=== PATIENT | female | born 1960 | race Caucasian/White ===

== ENCOUNTER → 2017-02-15 08:15 | Outpatient (CLI) | payer OTHER ==
[2013-01-01 11:13] VITALS: BMI 42.4
[2017-02-15 08:30] LABS: BASOPHILS 0.3 % (0-2); EOSINOPHILS 2.2 % (0-7); HEMATOCRIT 43.1 % (36.0-48.0); HEMOGLOBIN 14.7 g/dL (12-16); IMMATURE GRANULOCYTES 0.2 % (0-5); LYMPHOCYTES 30.1 % (15-50); MCH 30.9 pg (26.0-34.0); MCHC 34.1 g/dL (31.0-37.0); MCV 90.5 fL (80.0-100.0); MEAN PLATELET VOLUME 10.8 fL (7.4-10.4); MONOCYTES 8.2 % (2-11); PLATELET COUNT 192 10x3/uL (130-400); RBC 4.76 10x6/uL (4.00-5.40); RDW 12.4 % (11.5-14.5); WBC 5.9 10x3/uL (4.8-10.8)
[2017-02-15 09:09] LABS: ALBUMIN 3.6 g/dL (3.4-5.0); ALKALINE PHOSPHATASE 44 U/L (46-116); ALT (SGPT) 20 U/L (10-68); BILIRUBIN - TOTAL 0.76 mg/dL (0.2-1.3); CALC OSMOLALITY 280 mosm/kg (275-300); CALCIUM 9.2 mg/dL (8.5-10.1); CARBON DIOXIDE 29.2 mmol/L (21.0-32.0); CHLORIDE - SERUM 106 mmol/L (98-107); CHOL - HDL RATIO 5.8 ratio (2.3-4.1); CHOLESTEROL, TOTAL 213 mg/dL (0-200); GLUCOSE 104 mg/dL (74-106); HDL CHOLESTEROL 37 mg/dL (32-96); LDL CHOLESTEROL 133 mg/dL (0-100); LDL-HDL RATIO 3.6 ratio (1.5-3.5); PROTEIN - SERUM 6.9 g/dL (6.4-8.2); SODIUM 141 mmol/L (136-145); TRIGLYCERIDE 216 mg/dL (30-200); TROPONIN-I < 0.017 ng/mL (0.000-0.060); UREA NITROGEN 13 mg/dL (7-18); eGFR NON AFRICAN AMERICAN 61 mL/min (90-120)
== END | disposition home or self-care (01) ==
LOC: D.LAB 08:15
PROVIDERS: Family Medicine
DX: Z00.00 Encounter for general adult medical examination without abnormal findings (principal); R07.9 Chest pain, unspecified; I10 Essential (primary) hypertension; E55.9 Vitamin D deficiency, unspecified; E78.4 Other hyperlipidemia

== ENCOUNTER → 2017-07-05 08:57 | Outpatient (CLI) | payer OTHER ==
[2013-01-01 11:13] VITALS: BMI 42.4
[2017-07-05 09:46] LABS: CHOL - HDL RATIO 6.5 ratio (2.3-4.1); LDL-HDL RATIO 4.3 ratio (1.5-3.5)
== END | disposition home or self-care (01) ==
LOC: D.LAB 08:15
PROVIDERS: Family Medicine
DX: E78.4 Other hyperlipidemia (principal)

== ENCOUNTER → 2018-06-06 12:25 | Outpatient (CLI) | payer OTHER ==
[2013-01-01 11:13] VITALS: BMI 42.4
== END | disposition home or self-care (01) ==
LOC: D.RAD 12:25
DX: M54.5 Low back pain (principal)

== ENCOUNTER → 2019-08-29 11:58 | Outpatient (CLI) | payer OTHER ==
[2013-01-01 11:13] VITALS: BMI 42.4
[~2019-08-29 11:58] MED LIST: BREO ELLIPTA 11 EACH INH; CYCLOBENZAPRINE10 MG PO; CYMBALTA60 MG PO; HYDROCHLOROTHIA25 MG PO; HYDROCODON-ACE1 EA10 PO; INDERAL 40 MG T40 MG PO; OMEPRAZOLE20 M1 PO; VOLTAREN75 MG PO
== END | disposition home or self-care (01) ==
LOC: D.LABREF 11:58
PROVIDERS: ATTEND Orthopaedic Surgery
DX: M16.12 Unilateral primary osteoarthritis, left hip (principal)

== ENCOUNTER 2019-09-06 16:15 | Inpatient (IN) | payer OTHER ==
[~2019-09-06] VITALS: Ht 170.2 cm; Wt 122.7 kg
[2019-09-25 12:05] LABS: HEMATOCRIT 41.7 % (36.0-48.0); HEMOGLOBIN 14.6 g/dL (12-16); LYMPHOCYTES 31.6 % (15-50); MCH 30.9 pg (26.0-34.0); MCV 88.2 fL (80.0-100.0); MEAN PLATELET VOLUME 9.8 fL (7.4-10.4); NEUTROPHILS 61.7 % (40-80); PLATELET COUNT 219 10x3/uL (130-400); RBC 4.73 10x6/uL (4.00-5.40); RDW 11.9 % (11.5-14.5); WBC 5.7 10x3/uL (4.8-10.8)
[2019-09-25 12:17] LABS: ANION GAP 12.2 mmol/L (8-16); APTT 27.8 SECONDS (22.8-39.4); CALCIUM 8.9 mg/dL (8.5-10.1); CREATININE - SERUM 0.9 mg/dL (0.6-1.3); INR 1.07 (0.85-1.17); POTASSIUM - SERUM 3.2 mmol/L (3.5-5.1); PROTIME 13.4 SECONDS (11.6-15.0)
[2019-09-25 12:46] LABS: APPEARANCE CLEAR (CLEAR); BILIRUBIN NEGATIVE (NEGATIVE); COLOR YELLOW (YELLOW); GLUCOSE NEGATIVE (NEGATIVE); KETONE NEGATIVE (NEGATIVE); NITRITE NEGATIVE (NEGATIVE); PROTEIN NEGATIVE (NEGATIVE); SPECIFIC GRAVITY 1.025 (1.005-1.020); UROBILINOGEN NORMAL (NORMAL)
[2019-10-01 06:34] VITALS: BP 157/98; BMI 43.8
--- NOTE | 2019-10-01 07:20 | NUR ---
DR BIRMINGHAM NOTIFIED AND REVIEWED PATIENT'S BEHAVIOR AND ASSESSMENT RESULTS. PATIENT IS A LOW RISK. DR BIRMINGHAM STATED TO GIVE RESOURCES TO PATIENT. RESOURCES REVIEWED WITH PATIENT AND SHE VERBALIZES UNDERSTANDING.
[2019-10-01] MEDS ORDERED: CYMBALTA60 MG PO (07:24)
[2019-10-01] MEDS ORDERED: INDERAL 40 MG T40 MG PO (07:24)
[2019-10-01] MEDS ORDERED: VOLTAREN75 MG PO (07:25)
[2019-10-01] MEDS ORDERED: HYDROCHLOROTHIA25 MG PO (07:25)
[2019-10-01] MEDS ORDERED: CYCLOBENZAPRINE10 MG PO (07:26)
[2019-10-01] MEDS ORDERED: HYDROCODON-ACE1 EA10 PO (07:26)
[2019-10-01] MEDS ORDERED: OMEPRAZOLE20 M1 PO (07:27)
[2019-10-01] MEDS ORDERED: BREO ELLIPTA 11 EACH INH (07:28)
--- NOTE | 2019-10-01 11:28 | NUR ---
HIBICLENS/ALCOHOL PREP WAS DONE FIRST FROM MED ABDOMEN TO CALF CIRCUMFRENCIALLY. RN IN [place]ER[place] GOWN AND GLOVES TO PREP WITH HIBICLENS CIRCUMFRENCIALLY. [facility] SETTING IS 03/30 AND 170.
--- NOTE | 2019-10-01 11:53 | NUR ---
TOBRAMYCIN AND VANCOMYCIN ON FIELD AND PACKED INTO WOUND.
--- NOTE | 2019-10-01 13:12 | NUR ---
PT HAS CYANOTIC TOES BILATERALLY AT TIME OF ASSESSMENT. RT FOOT RESOLVED AFTER WRAPPING IN WARM BLANKET. LEFT FOOT PEDAL PULSES IDENTIFIED AND MARKED AT BOTH DORSALIS PEDIS AND POSTERIAL TIBIAL SITES. PULSES WEAK AND REGULAR. LEFT FOOT ALSO WRAPPED IN WARM BLANKET. WILL CTM.
--- NOTE | 2019-10-01 13:30 | NUR ---
BILATERAL FEET REASSESSED. CYANOSIS OF TOES IS RESOLVED. REWRAPPED LEFT FOOT IN WARM BLANKET.
--- NOTE | 2019-10-01 14:00 | NUR ---
PATIENT TO ROOM AT THIS TIME WITH IV INTACT. NO COMPLAINTS EYES CLOSED RESTING QUIETLY. FAMILY IN ROOM. VS STABLE. CALL LIGHT WITHIN REACH.
[2019-10-01 14:01] VITALS: BP 131/82
--- NOTE | 2019-10-01 15:42 | OP ---
PATIENT NAME: YESI ANGULO MEDICAL RECORD: [id number] :64 LOCATION:D.MS [id number] ADMISSION DATE:10/01/19 SURGEON: RICHARD PERRY DO DATE OF OPERATION: 10/01/2019 PROCEDURE PERFORMED: Left total hip arthroplasty. 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 INDICATIONS: Ms. Angulo is a 58-year-old female who has had left hip AVN for some time. She got an MRI showing very severe. She did not want to undergo a core decompression. She wanted hip replaced as she is tired dealing with the pain, wanted to go away. I informed her of the risks including infection, fracture, bleeding, damage to nerves and vessels anterolateral thigh numbness, blood clots and even . She was aware of that and continued pain and she signed a consent. SURGEON: Richard Perry DO DESCRIPTION OF PROCEDURE: The patient was taken to the operative suite, laid in supine position and given general anesthetic and intubated. The patient was then moved to the [place] table. The left hip was prepped and draped in sterile fashion. I then did another prep stick prior to putting a final drape on. Once the final drape was put over the site, timeout had been performed, everyone was in agreeance with the correct side, site, patient and procedure. The incision began over tensor fasciae jeremy muscle. Careful dissection was made down to the muscle. The fascia was taken anteriorly and the muscle belly posteriorly. I opened up the interval between the rectus. This fascia was then opened in the rectus was rectus was taken medially, the tensor fascia jeremy laterally and the ascending branch of lateral femoral circumflex artery and the accompanying veins were exposed, tied off and then coagulated with the Aquamantys. The capsule was then exposed and Hohmanns were placed around the neck of the femur. The capsule was then opened up and tagged. The Hohmanns were then placed inside around the neck. Femoral neck was then cut and head was removed. The acetabulum was then exposed. The labrum was removed and the foam around it was removed. Bleeding was coagulated with the Aquamantys. The reaming then began in the acetabulum and then up to a 52 cup. A 52 cup was impacted into place and sat very nicely and was probed and it was very well seated. The liner was then placed. The femur was then exposed and the canal finder and cookie cutter was used and then the broach from a 4 to a 11 was used. The 11 was then used as a trial with a -3 neck. X-rays were taken, it fit very well and had good length compared to the right side on AP pelvis. This was then removed and the actual implant was placed, and the hip was reduced and fit very well, had good motion, very good stability. The site was then irrigated with 10% povidone iodine solutions with 500 mL of normal saline and set for 3 minutes. This was then irrigated out with a liter of normal saline and then the capsule was closed with #2 Ethibond in a lxstis-va-swsvb fashion. Manisha was then put in as well as a tobramycin and vancomycin powder. The tensor fascia jeremy fascia was then closed with #1 Vicryl, first in a vcpgdt-lw-sfycw and then a running locking stitch. Skin was then closed with 2-0 Vicryl in an inverted interrupted fashion, 4-0 Monocryl ran on the skin and a Prevena Plus placed on the skin. She was then awakened and taken to recovery in stable condition. Blood loss was approximately 250 mL. OPERATIVE REPORT [id number] YESI ANGULO COMPLICATIONS: None. I was assisted by Yg العراقي, advanced nurse practitioner and Jose Garce, certified surgical first aid officer. They both assisted with retraction as well as closing. The procedure could not have been performed without them. TRANSINT:[id number] Voice Confirmation ID: [id number] DOCUMENT ID: [id number] RICHARD PERRY DO at 1542 CC: [id number] DICTATION DATE: 10/01/19 1222 WHIPPER BEATER: 10/01/19 1336 ADM IN [place] [id number] [place] [address]
--- NOTE | 2019-10-01 15:45 | NUR ---
PATIENT IN BED WITH IV INTACT. NO COMPLAINTS, VS STABLE. DRESSING CDI TO HIP. EYES CLOSED RESTING QUIETLY AT THIS TIME. CALL LIGHT WITHIN REACH.
[2019-10-01 15:56] LABS: BASOPHILS 0 % (0-2); EOSINOPHILS 0.1 % (0-7); HEMATOCRIT 36.9 % (36.0-48.0); HEMOGLOBIN 12.2 g/dL (12-16); IMMATURE GRANULOCYTES 0.2 % (0-5); LYMPHOCYTES 4.9 % (15-50); MCH 30.5 pg (26.0-34.0); MCHC 33.1 g/dL (31.0-37.0); MCV 92.3 fL (80.0-100.0); MEAN PLATELET VOLUME 9.9 fL (7.4-10.4); MONOCYTES 3.9 % (2-11); NEUTROPHILS 90.9 % (40-80); PLATELET COUNT 213 10x3/uL (130-400); RDW 12.5 % (11.5-14.5); WBC 8.3 10x3/uL (4.8-10.8)
[2019-10-01 16:19] LABS: ALBUMIN 2.6 g/dL (3.4-5.0); ANION GAP 12.6 mmol/L (8-16); BILIRUBIN - TOTAL 1.26 mg/dL (0.2-1.3); CALCIUM 8.2 mg/dL (8.5-10.1); CARBON DIOXIDE 26.8 mmol/L (21.0-32.0); CREATININE - SERUM 0.9 mg/dL (0.6-1.3); POTASSIUM - SERUM 4.4 mmol/L (3.5-5.1); PROTEIN - SERUM 5.4 g/dL (6.4-8.2)
--- NOTE | 2019-10-01 18:45 | NUR ---
PATIENT IN BED WITH IV INTACT. TOLERATED REGULAR DIET EARLIER WITH NO N/V. VS STABLE. NO COMPLAINTS OR SIGNS OF DISTRESS. EYES CLOSED RESTING QUIETLY. CALL LIGHT WITHIN REACH.
[2019-10-01 19:57] VITALS: BP 131/82; Ht 170.2 cm; Wt 122.7 kg
[2019-10-01 21:45] VITALS: BP 123/77
[2019-10-02] VITALS (9 sets, daily range): BP systolic 97–136; BP diastolic 57–82
[2019-10-02 04:43] LABS: BASOPHILS 0 % (0-2); EOSINOPHILS 0 % (0-7); HEMATOCRIT 35.3 % (36.0-48.0); HEMOGLOBIN 11.8 g/dL (12-16); IMMATURE GRANULOCYTES 0.3 % (0-5); LYMPHOCYTES 7.8 % (15-50); MCH 30.4 pg (26.0-34.0); MCHC 33.4 g/dL (31.0-37.0); MEAN PLATELET VOLUME 10.3 fL (7.4-10.4); NEUTROPHILS 82.9 % (40-80); RBC 3.88 10x6/uL (4.00-5.40); RDW 12.4 % (11.5-14.5); WBC 10.3 10x3/uL (4.8-10.8)
[2019-10-02 04:53] LABS: PLATELET COUNT 264 10x3/uL (130-400)
[2019-10-02 05:05] LABS: BILIRUBIN - TOTAL 0.73 mg/dL (0.2-1.3); CALCIUM 8.2 mg/dL (8.5-10.1); CARBON DIOXIDE 30.3 mmol/L (21.0-32.0); CREATININE - SERUM 1.1 mg/dL (0.6-1.3); PROTEIN - SERUM 6.1 g/dL (6.4-8.2)
[2019-10-02 05:10] LABS: ANION GAP 10.2 mmol/L (8-16); POTASSIUM - SERUM 3.5 mmol/L (3.5-5.1)
--- NOTE | 2019-10-02 08:45 | NUR ---
PATIENT IN BED WITH IV INTACT. NO COMPLAINTS OR SIGNS OF DISTRESS. CALL LIGHT WITHIN REACH.
--- NOTE | 2019-10-02 18:45 | NUR ---
PATIENT IN BED WITH IV INTACT. BSCDS ON AND WORKING. NO COMPLAINTS. CALL LIGHT WITHIN REACH.
--- NOTE | 2019-10-02 19:25 | NUR ---
UP IN BED WITH TV ON, ABLE TO VOICE ALL NEEDS. ALERT AND ORIENTED. DENIES PAIN AT THIS TIME. PROVENA VAC TO LEFT HIP ORDERED. NO S/S OF ANY DISTRESS. WILL NOTE ANY CHANGE.
[2019-10-03 01:43] VITALS: BP 120/60
[2019-10-03 04:03] VITALS: BP 135/80
--- NOTE | 2019-10-03 05:04 | NUR ---
I have reviewed this patient and I concur with the Shift Assessment completed by the Licensed Practical Nurse today this shift.
--- NOTE | 2019-10-03 05:04 | NUR ---
I have reviewed this patient and I concur with the Shift Assessment completed by the Licensed Practical Nurse today this shift.
[2019-10-03 06:35] VITALS: BP 128/60
[2019-10-03 06:41] LABS: BASOPHILS 0.1 % (0-2); EOSINOPHILS 0.4 % (0-7); HEMATOCRIT 32.8 % (36.0-48.0); IMMATURE GRANULOCYTES 0.3 % (0-5); LYMPHOCYTES 23.4 % (15-50); MCH 30.1 pg (26.0-34.0); MCHC 33.5 g/dL (31.0-37.0); MCV 89.6 fL (80.0-100.0); MEAN PLATELET VOLUME 10.6 fL (7.4-10.4); MONOCYTES 12.8 % (2-11); RBC 3.66 10x6/uL (4.00-5.40); RDW 12.3 % (11.5-14.5); WBC 7.9 10x3/uL (4.8-10.8)
--- NOTE | 2019-10-03 07:10 | NUR ---
ALERT AND ORIENTED, RESTING IN BED EYES OPEN. NO C/O PAIN. NO S/S OF ACUTE DISTRESS NOTED. POD#2 LEFT HIP, PROVENA WOUND VAC IN PLACE AND DRESSING C/D/I. SCDS PRESENT. UP WITH WALKER. USES BEDSIDE COMMODE. IV TO RIGHT HAND, SL. SITE PATENT WITHOUT REDNESS OR SWELLING. DENIES ANY NEEDS AT THIS TIME. CALL LIGHT IN REACH. WILL CONTINUE TO MONITOR.
[2019-10-03 07:22] LABS: PLATELET COUNT 206 10x3/uL (130-400)
[2019-10-03 07:25] LABS: ALBUMIN 2.8 g/dL (3.4-5.0); BILIRUBIN - TOTAL 0.86 mg/dL (0.2-1.3); CALCIUM 8.3 mg/dL (8.5-10.1); CARBON DIOXIDE 29.8 mmol/L (21.0-32.0)
[2019-10-03 07:54] LABS: ANION GAP 9.9 mmol/L (8-16)
[2019-10-03 07:56] LABS: POTASSIUM - SERUM 2.7 mmol/L (3.5-5.1)
--- NOTE | 2019-10-03 08:06 | NUR ---
RECEIVED CALL FROM LAB, CRITICAL POTASSIUM OF 2.[address] PERRY. PATIENT ON ELECTROLYTE PROTOCOL. WILL FOLLOW PROTOCOL.
[2019-10-03] MEDS ORDERED: ELIQUIS2.5 MG PO (08:08)
[2019-10-03] MEDS ORDERED: KEFLEX500 MG PO (08:09)
[2019-10-03] MEDS ORDERED: OXYCODONE HCL5 M1 PO (08:09)
[2019-10-03] MEDS ORDERED: VISTARIL50 MG PO (08:09)
[2019-10-03 08:40] VITALS: BP 115/61
--- NOTE | 2019-10-03 11:19 | NUR ---
I have reviewed this patient and I concur with the Shift Assessment completed by the Licensed Practical Nurse today this shift.
[2019-10-03 13:00] VITALS: BP 118/64
--- NOTE | 2019-10-03 16:49 | MORECARE ---
CASE MANAGEMENT DISCHARGE SUMMARY PATIENT: YESI ANGULO UNIT: [id number] ADM DATE: 10/01/19 AGE: 58 : 64 SEX: F ROOM/BED: D.2211 AUTHOR: SHERYL CONTRERAS PHYSICIAN: REFERRING PHYSICIAN: XANDER PERRY DO DATE OF SERVICE: 10/03/19 Discharge Plan Patient Name: YESI ANGULO Facility: [facility]:[place] : 1960 Planned Disposition: Home or Self Care Anticipated Discharge Date: Discharge Date: Expected LOS: Initial Reviewer: [email or web address] Initial Review Date: 10/01/2019 Generated: 10/03/19 5:49 pm DCPIA - Discharge Planning Initial Assessment Updated by [email or web address]: Tashia Cedeno on 10/03/19 4:47 pm * Is the patient Alert and Oriented? Yes * How many steps to enter\exit or inside your home? 15 * PCP RYAN * Pharmacy [facility] [address] * Preadmission Environment Home with Family * ADLs Independent * Equipment Bedside Commode Rolling Walker * List name and contact numbers for known caregivers / representatives who currently or will assist patient after discharge: MITCHELL ( MOTHER) [phone] * Verbal permission to speak to the caregivers and representatives has been obtained from the patient. N/A * Community resources currently utilized None * Additional services required to return to the preadmission environment? Yes * Can the patient safely return to the preadmission environment? Yes * Has this patient been hospitalized within the prior 30 days at any hospital? No External Providers External Provider: Issac PT Next Contact Date: Service Request Date: Service Type: Resolution: Reviewer: Comments: Patient Name: YESI ANGULO Page 49582 at 1649 All edits/amendments must be made on the electronic document DICTATION DATE: 10/03/191648 IMAGING AIDE: DEB 10/03/191648 RPT#: [id number] DC DATE: STATUS: ADM IN [place] [place] [address] END OF REPORT
--- NOTE | 2019-10-03 16:59 | MORECARE ---
CASE MANAGEMENT DISCHARGE SUMMARY PATIENT: YESI ANGULO UNIT: [id number] ADM DATE: 10/01/19 AGE: 58 : 64 SEX: F ROOM/BED: D.2211 AUTHOR: SHERYL CONTRERAS PHYSICIAN: REFERRING PHYSICIAN: XANDER PERRY DO DATE OF SERVICE: 10/03/19 Discharge Plan Patient Name: YESI ANGULO Facility: [facility]:[place] : 1960 Planned Disposition: Home or Self Care Anticipated Discharge Date: Discharge Date: Expected LOS: Initial Reviewer: [email or web address] Initial Review Date: 10/01/2019 Generated: 10/03/19 5:59 pm Comments DCP- Discharge Planning Updated by [email or web address]: Tashia Cedeno on 10/03/19 3:[address] Patient Name: YESI ANGULO Admission Status: Elective Accout number: [id number] Admission Date: 10-01-2019 : 1960 Admission Diagnosis: Attending: XANDER PERRY Current LOS: 2 Anticipated DC Date: Planned Disposition: Home or Self Care Primary Insurance: [employer] PPO Discharge Planning Comments: CM met with patient to complete initial dc planning assessment. CM educated patient on the CM role and verbal consent given by patient to complete assessment. Patient lives at home with her daughter who will be her flatbed truck driver home at discharge. At discharge patient plans to return home and feels this is a safe discharge. CM discussed availability of home health, rehab services, and medical equipment. She has a walker and BSC that was set up by Dr Perry's office. She would like to do her op pt at [facility] with Emily. I have made her appointment for Monday at 1:30. I spoke with Robin. Patient denied known discharge needs at this time. CM will continue to follow and will assist as needed with dc plans/needs. Tube Cutter: Tashia Cedeno DCPIA - Discharge Planning Initial Assessment Updated by [email or web address]: Tashia Cedeno on 10/03/19 4:47 pm * Is the patient Alert and Oriented? Yes * How many steps to enter\exit or inside your home? 15 * PCP RYAN * Pharmacy [facility] [address] * Preadmission Environment Home with Family * ADLs Independent * Equipment Bedside Commode Rolling Walker * List name and contact numbers for known caregivers / representatives who currently or will assist patient after discharge: MITCHELL ( MOTHER) [phone] * Verbal permission to speak to the caregivers and representatives has been obtained from the patient. N/A * Community resources currently utilized None * Additional services required to return to the preadmission environment? Yes * Can the patient safely return to the preadmission environment? Yes * Has this patient been hospitalized within the prior 30 days at any hospital? No Last DP export: 10/03/19 3:49 Patient Name: YESI ANGULO Page [id number] at 1651 All edits/amendments must be made on the electronic document DICTATION DATE: 10/03/191658 SHEET METAL DUCT INSTALLER: DEB 10/03/191658 RPT#: [id number] DC DATE: STATUS: ADM IN [facility] [address] [place] [address] END OF REPORT
--- NOTE | 2019-10-03 17:22 | MORECARE ---
CASE MANAGEMENT DISCHARGE SUMMARY PATIENT: YESI ANGULO UNIT: [id number] ADM DATE: 10/01/19 AGE: 58 : 64 SEX: F ROOM/BED: D.2211 AUTHOR: SHERYL CONTRERAS PHYSICIAN: REFERRING PHYSICIAN: AXNDER PERRY DO DATE OF SERVICE: 10/03/19 Discharge Plan Patient Name: YESI ANGULO Facility: [facility]:[place] : 1960 Planned Disposition: Home or Self Care Anticipated Discharge Date: Discharge Date: Expected LOS: Initial Reviewer: [email or web address] Initial Review Date: 10/01/2019 Generated: 10/03/19 6:22 pm Comments DCP- Discharge Planning Updated by [email or web address]: Tashia Cedeno on 10/03/19 4:[address] DISCHARGE HAS BEEN PLACED ON DUE TO LOW K+ DCP- Discharge Planning Updated by [email or web address]: Tashia Cedeno on 10/03/19 3:[address] Patient Name: YESI ANGULO Admission Status: Elective Accout number: [id number] Admission Date: 10-01-2019 : 1960 Admission Diagnosis: Attending: XANDER PERRY Current LOS: 2 Anticipated DC Date: Planned Disposition: Home or Self Care Primary Insurance: [employer] PPO Discharge Planning Comments: CM met with patient to complete initial dc planning assessment. CM educated patient on the CM role and verbal consent given by patient to complete assessment. Patient lives at home with her daughter who will be her water tanker driver home at discharge. At discharge patient plans to return home and feels this is a safe discharge. CM discussed availability of home health, rehab services, and medical equipment. She has a walker and BSC that was set up by Dr Perry's office. [facility] I have made her appointment for Monday at 1:30. I spoke with Robin. Patient denied known discharge needs at this time. CM will continue to follow and will assist as needed with dc plans/needs. Cable Rigger: Tashia Cedeno DCPIA - Discharge Planning Initial Assessment Updated by [email or web address]: Tashia Cedeno on 10/03/19 4:47 pm * Is the patient Alert and Oriented? Yes * How many steps to enter\exit or inside your home? 15 * PCP RYAN * Pharmacy [facility] [address] * Preadmission Environment Home with Family * ADLs Independent * Equipment Bedside Commode Rolling Walker * List name and contact numbers for known caregivers / representatives who currently or will assist patient after discharge: MITCHELL ( MOTHER) [phone] * Verbal permission to speak to the caregivers and representatives has been obtained from the patient. N/A * Community resources currently utilized None * Additional services required to return to the preadmission environment? Yes * Can the patient safely return to the preadmission environment? Yes * Has this patient been hospitalized within the prior 30 days at any hospital? No Last DP export: 10/03/19 3:59 Patient Name: YESI ANGULO Page 14788 at 1722 All edits/amendments must be made on the electronic document DICTATION DATE: 10/03/191720 FACTORY SUPERVISOR: DEB 10/03/191720 RPT#: [id number] DC DATE: STATUS: ADM IN [facility] [address] [place] [address] END OF REPORT
--- NOTE | 2019-10-03 18:23 | NUR ---
ALERT AND ORIENTED, RESTING IN BED. NO C/O PAIN. NO S/S OF ACUTE DISTRESS NOTED. DENIES ANY NEEDS AT THIS TIME. CALL LIGHT IN REACH. WILL CONTINUE TO MONITOR.
--- NOTE | 2019-10-03 19:15 | NUR ---
LYING IN BED WITH TELEVISION ON, ABLE TO VOICE ALL NEEDS. SHOWS NO S/S OF ANY ACUTE DISTRESS. IS USING SMALLER WOUND VAC AT THIS TIME. DENIES ANY PAIN. WILL NOTE ANY CHANGE.
[2019-10-03 20:00] VITALS: BP 99/40
[2019-10-04] VITALS: BP 114/62
[2019-10-04 00:11] VITALS: BP 114/62
[2019-10-04 04:00] VITALS: BP 115/66
[2019-10-04 04:51] LABS: BASOPHILS 0.1 % (0-2); EOSINOPHILS 1.8 % (0-7); HEMATOCRIT 32.6 % (36.0-48.0); IMMATURE GRANULOCYTES 0.4 % (0-5); LYMPHOCYTES 21.6 % (15-50); MCH 30.5 pg (26.0-34.0); MCHC 33.7 g/dL (31.0-37.0); MCV 90.3 fL (80.0-100.0); MEAN PLATELET VOLUME 10.3 fL (7.4-10.4); MONOCYTES 10.7 % (2-11); NEUTROPHILS 65.4 % (40-80); PLATELET COUNT 231 10x3/uL (130-400); RBC 3.61 10x6/uL (4.00-5.40); RDW 12.4 % (11.5-14.5); WBC 8.2 10x3/uL (4.8-10.8)
[2019-10-04 05:22] LABS: ALBUMIN 2.6 g/dL (3.4-5.0); ALKALINE PHOSPHATASE 70 U/L (46-116); BILIRUBIN - TOTAL 0.94 mg/dL (0.2-1.3); CALCIUM 8.6 mg/dL (8.5-10.1); CARBON DIOXIDE 30.4 mmol/L (21.0-32.0); CHLORIDE - SERUM 103 mmol/L (98-107); CREATININE - SERUM 0.8 mg/dL (0.6-1.3); GLUCOSE 112 mg/dL (74-106); POTASSIUM - SERUM 3.7 mmol/L (3.5-5.1); PROTEIN - SERUM 6.2 g/dL (6.4-8.2); SODIUM 139 mmol/L (136-145); eGFR NON AFRICAN AMERICAN 78 mL/min (90-120)
[2019-10-04 05:24] LABS: ALT (SGPT) 81 U/L (10-68); CALC OSMOLALITY 277 mosm/kg (275-300); UREA NITROGEN 11 mg/dL (7-18)
--- NOTE | 2019-10-04 07:26 | NUR ---
AWAKE AND ALERT. ORIENTED X3. DENIES PAIN THIS AM. LUNGS ARE CLEAAR BILATERALLY, NO COUGH NOTED. SKIN IS INTACT WITHOUT REDNESS EXCEPT INCISION TO LEFT HIP WHICH HAS A PROVENA WOUND VAC IN PLACE. SL TO RIGHT HAND IS PATENT WITHOUT REDNESS AT INSERTION SITE. DENIES NEEDS.
[2019-10-04] MEDS ORDERED: KLOR-CON M2020 MEQ PO (07:33)
[2019-10-04 08:02] VITALS: BP 119/65
--- NOTE | 2019-10-04 09:30 | NUR ---
ATE MOST OF BREAKFAST. TOOK AM MEDS WITHOUT DIFFICULTY. DENIES NEEDS.
--- NOTE | 2019-10-04 11:18 | NUR ---
DISCHARGED TO HOME WITH FAMILY AMBULATORY. DISCHARGE INSTRUCTIONS GIVEN BOTH VERBALLY AND WRITTEN. ALL QUESTIONS ANSWERED. PATIENT VERBALIZED UNDERSTANDING OF SAME. SL TO RIGHT HAND D/C WITH CATHETER INTACT. NEEDED PRESCRIPTIONS GIVEN TO PATIENT. ALL BELONGINGS WITH PATIENT.
--- NOTE | 2019-10-04 11:38 | MORECARE ---
CASE MANAGEMENT DISCHARGE SUMMARY PATIENT: YESI ANGULO UNIT: [id number] ADM DATE: 10/01/19 AGE: 58 : 64 SEX: F ROOM/BED: D.2211 AUTHOR: SHERYL CONTRERAS PHYSICIAN: REFERRING PHYSICIAN: XANDER PERRY DO DATE OF SERVICE: 10/04/19 Discharge Plan Patient Name: YESI ANGULO Facility: [facility]:[place] : 1960 Planned Disposition: Home or Self Care Anticipated Discharge Date: Discharge Date: 10/04/2019 Expected LOS: Initial Reviewer: [email or web address] Initial Review Date: 10/01/2019 Generated: 10/04/19 12:38 pm Comments DCP- Discharge Planning Updated by [id number]: Tashia Cedeno on 10/04/19 10:[address] Patient discharged home no new needs identified DCP- Discharge Planning Updated by [email or web address]: Tashia Cedeno on 10/03/19 4:[address] DISCHARGE HAS BEEN PLACED ON DUE TO LOW K+ DCP- Discharge Planning Updated by [email or web address]: Tashia Cedeno on 10/03/19 3:[address] Patient Name: YESI ANGULO Admission Status: Elective Accout number: [id number] Admission Date: 10-01-2019 : 1960 Admission Diagnosis: Attending: XANDER PERRY Current LOS: 2 Anticipated DC Date: Planned Disposition: Home or Self Care Primary Insurance[facility] Discharge Planning Comments: CM met with patient to complete initial dc planning assessment. CM educated patient on the CM role and verbal consent given by patient to complete assessment. Patient lives at home with her daughter who will be her taxicab driver home at discharge. At discharge patient plans to return home and feels this is a safe discharge. CM discussed availability of home health, rehab services, and medical equipment. She has a walker and BSC that was set up by Dr Perry's office. She would like to do her op pt at [facility] with Emily. I have made her appointment for Monday at 1:30. I spoke with Robin. Patient denied known discharge needs at this time. CM will continue to follow and will assist as needed with dc plans/needs. Deckhand Maintenance: Tashia Cedeno DCPIA - Discharge Planning Initial Assessment Updated by [email or web address]: Tashia Cedeno on 10/03/19 4:47 pm * Is the patient Alert and Oriented? Yes * How many steps to enter\exit or inside your home? 15 * PCP RYAN * Pharmacy [facility] [address] * Preadmission Environment Home with Family * ADLs Independent * Equipment Bedside Commode Rolling Walker * List name and contact numbers for known caregivers / representatives who currently or will assist patient after discharge: MITCHELL ( MOTHER) [phone] * Verbal permission to speak to the caregivers and representatives has been obtained from the patient. N/A * Community resources currently utilized None * Additional services required to return to the preadmission environment? Yes * Can the patient safely return to the preadmission environment? Yes * Has this patient been hospitalized within the prior 30 days at any hospital? No Last DP export: 10/03/19 4:22 Patient Name: YESI ANGULO Page 68695 at 1138 All edits/amendments must be made on the electronic document DICTATION DATE: 10/04/19 1138 CENSUS TAKER: DEB 10/04/19 1138 RPT#: [id number] DC DATE:10/04/19 STATUS: DIS IN [facility] [address] [place] [address] END OF REPORT
--- NOTE | 2019-10-06 14:02 | MORECARE ---
CASE MANAGEMENT DISCHARGE SUMMARY PATIENT: YESI ANGULO UNIT: [id number] ADM DATE: 10/01/19 AGE: 58 : 64 SEX: F ROOM/BED: D.2211 AUTHOR: SHERYL CONTRERAS PHYSICIAN: REFERRING PHYSICIAN: XANDER PERRY DO DATE OF SERVICE: 10/06/19 Discharge Plan Patient Name: YESI ANGULO Facility: [facility]:[place] : 1960 Planned Disposition: Home or Self Care Anticipated Discharge Date: Discharge Date: 10/04/2019 Expected LOS: Initial Reviewer: [email or web address] Initial Review Date: 10/01/2019 Generated: 10/06/19 3:01 pm Comments DCP- Discharge Planning Updated by [email or web address]: Tashia Cedeno on 10/04/19 10:[address] Patient discharged home no new needs identified DCP- Discharge Planning Updated by [email or web address]: Tashia Cedeno on 10/03/19 4:[address] DISCHARGE HAS BEEN PLACED ON DUE TO LOW K+ DCP- Discharge Planning Updated by [id number]: Tashia Cedeno on 10/03/19 3:[address] Patient Name: YESI ANGULO Admission Status: Elective Accout number: [id number] Admission Date: 10-01-2019 : 1960 Admission Diagnosis: Attending: XANDER PERRY Current LOS: 2 Anticipated DC Date: Planned Disposition: Home or Self Care [facility] Discharge Planning Comments: CM met with patient to complete initial dc planning assessment. CM educated patient on the CM role and verbal consent given by patient to complete assessment. Patient lives at home with her daughter who will be her auto parts delivery driver home at discharge. At discharge patient plans to return home and feels this is a safe discharge. CM discussed availability of home health, rehab services, and medical equipment. She has a walker and BSC that was set up by Dr Perry's office. She would like to do her op pt at [facility] with Emily. I have made her appointment for Monday at 1:30. I spoke with Robin. Patient denied known discharge needs at this time. CM will continue to follow and will assist as needed with dc plans/needs. Windows And Doors Installer: Tashia Cedeno DCPIA - Discharge Planning Initial Assessment Updated by [email or web address]: Tashia Cedeno on 10/03/19 4:47 pm * Is the patient Alert and Oriented? Yes * How many steps to enter\exit or inside your home? 15 * PCP RYAN * Pharmacy [facility] [address] * Preadmission Environment Home with Family * ADLs Independent * Equipment Bedside Commode Rolling Walker * List name and contact numbers for known caregivers / representatives who currently or will assist patient after discharge: MITCHELL ( MOTHER) [phone] * Verbal permission to speak to the caregivers and representatives has been obtained from the patient. N/A * Community resources currently utilized None * Additional services required to return to the preadmission environment? Yes * Can the patient safely return to the preadmission environment? Yes * Has this patient been hospitalized within the prior 30 days at any hospital? No Last DP export: 10/04/19 10:38 Patient Name: YESI ANGULO Page [phone] at 1402 All edits/amendments must be made on the electronic document DICTATION DATE: 10/06/19 1401 CHIROPRACTOR SOLE PRACTITIONER: DEB 10/06/19 1401 RPT#: [id number] DC DATE:10/04/19 STATUS: DIS IN [facility] [address] [place] [address] END OF REPORT
== END 2019-10-04 11:20 | disposition home or self-care (01) | DRG 470 ==
LOC: D.SDCHOLD 09-25 10:00 → D.MS 10-01 06:12 → D.SDCHOLD 10-01 07:00 → D.MS 10-01 13:43
PROVIDERS: Emergency Medicine; ADMIT Orthopaedic Surgery; ATTEND Orthopaedic Surgery
PROC: 0SRB0J9 Replacement of Left Hip Joint with Synthetic Substitute, Cemented, Open Approach (ICD-10-PCS; principal; 2019-10-01 08:15)
DX: M87.852 Other osteonecrosis, left femur (principal); I10 Essential (primary) hypertension; M54.9 Dorsalgia, unspecified; J45.909 Unspecified asthma, uncomplicated; E87.6 Hypokalemia